=== PATIENT | male | born 1945 | race African-American/Black ===

== ENCOUNTER 2024-04-13 17:00 | Emergency (ER) | payer MEDICARE, OTHER ==
[~2024-04-13] VITALS: Ht 172.7 cm; Wt 100.0 kg
[2024-04-13 17:03] VITALS: TEMP 98.4; O2SAT 99
[2024-04-13] MEDS ORDERED: CEPH500C2 MT (18:44)
[2024-04-13] MEDS ORDERED: SULF1TAB48 MT (18:44)
[2024-04-13] MEDS: LIDOCAINE HCL/PF 1% 10 MG/ML 5ML VIAL INFIL ONE ×2 (19:22→19:23)
[2024-04-13] MEDS: BACITRACIN ZINC OINT UDPKT TOP ONE (19:23)
[2024-04-13] MEDS: TETANUS, DIPHTHERIA, PERTUSSIS VAC/PF 0.5ML (>10YR OLD) IM ONE (19:27)
[2024-04-13 20:44] VITALS: BP 142/78; PULSE 69; RESP 18
== END 2024-04-13 20:45 | disposition home or self-care (01) ==
LOC: ER 17:00
DX: S61.411A Laceration without foreign body of right hand, initial encounter (principal); E78.00 Pure hypercholesterolemia, unspecified; I10 Essential (primary) hypertension; W18.39XA Other fall on same level, initial encounter; Y93.89 Activity, other specified; Y92.89 Other specified places as the place of occurrence of the external cause; Y99.8 Other external cause status
CPT/HCPCS: 99283; 73130; 90715; 12004; 90471; J3490

== ENCOUNTER 2024-04-22 10:36 | Emergency (ER) | payer MEDICARE, OTHER ==
[~2024-04-22] VITALS: Ht 177.8 cm; Wt 104.0 kg
[~2024-04-22 10:36] MED LIST: CEPH500C2 MT; SULF1TAB48 MT
[2024-04-22 11:18] VITALS: O2SAT 98
[2024-04-22] MEDS ORDERED: CEPH500T MT (11:44)
[2024-04-22 12:05] VITALS: BP 142/80; PULSE 80; RESP 18; TEMP 97.5
== END 2024-04-22 12:10 | disposition home or self-care (01) ==
LOC: ER 11:28
DX: S61.411D Laceration without foreign body of right hand, subsequent encounter (principal); E78.00 Pure hypercholesterolemia, unspecified; I10 Essential (primary) hypertension; Z48.02 Encounter for removal of sutures; X58.XXXD Exposure to other specified factors, subsequent encounter
CPT/HCPCS: 99283